=== PATIENT | female | born 1975 | race Caucasian/White ===

== ENCOUNTER → 2021-02-23 | Outpatient (CLI) | payer OTHER ==
--- NOTE | 2021-02-23 11:20 | KCIC ---
MRI BRAIN WO Date: 02/23/2021 9:45 AM Indication: LEFT SIDED NUMBNESS AND HEADACHE. Left sided numbness in face and upper extremitiy. Comparison: None. Technique: Multiplanar multisequence MRI of the brain was performed without intravenous contrast usin g the standard protocol. Findings: No acute infarct. No acute or chronic hemorrhage. The ventricles are normal in size and configuration without hydrocephalus. The scalp and calvarium are normal. The pituitary and sella are normal. No Chiari malformation. The v isualized upper cervical spine is normal. The visualized orbits and globes are normal. The visualized paranasal sinuses are clear. The mastoid air cells are clear. Normal flow voids within the vertebral, basilar, and internal carotid arteries indicating patency. IMPRESSION: No acute intracranial process. Electronically signed by: Daquan Wallace MD (02/23/2021 11:18 AM) [id number]
--- NOTE | 2021-02-23 11:20 | KCIC ---
MR CERVICAL SPINE WO DATE: 02/23/2021 9:45 AM INDICATION: LEFT SIDED NUMBNESS AND HEADACHE. Left sided numbness in face and upper extremitiy. TECHNIQUE: Multiplanar multisequence magnetic resonance imaging of the cervical spine was performed w ithout administration of intravenous contrast using the standard cervical spine protocol. COMPARISON: None. FINDINGS: The cervical spine is normally aligned. No acute fracture. Mild multilevel degenerative disc desicca tion and disc height loss. Bone marrow signal intensity is normal. The spinal cord is normal in signal intensity. On the limited views of the cranial cavity and brain, the cerebellum and willie have normal morphology and signal characteristics. No Chiari malformation. No soft tissue abnormality. Normal signal voids are present in the vertebral arteries. C2-3: No significant spinal canal stenosis or neural foraminal narrowing. C3-4: No significant spinal canal stenosis or neural foraminal narrowing. C4-5: No significant spinal canal stenosis or neural foraminal narrowing. C5-6: Disc osteophyte complex. Mild spinal canal stenosis. No neural foraminal narrowing. C6-7: No significant spinal canal stenosis or neural foraminal narrowing. C7-T1: No significant spinal canal stenosis or neural foraminal narrowing. IMPRESSION: Mild cervical spondylosis. Electronically signed by: Daquan Wallace MD (02/23/2021 11:18 AM) [id number]
== END ==
LOC: KCIC MRI 09:13
PROVIDERS: ATTEND Psychiatry & Neurology Neurology with Special Qualifications in Child Neurology
DX: M47.812 Spondylosis without myelopathy or radiculopathy, cervical region (principal); M25.78 Osteophyte, vertebrae; R20.0 Anesthesia of skin; R51.9 Headache, unspecified; G89.29 Other chronic pain; M54.2 Cervicalgia; M25.559 Pain in unspecified hip
CPT/HCPCS: 70551; 72141